=== PATIENT | male | born 1960 | race Caucasian/White ===

== ENCOUNTER 2018-03-15 22:42 | Inpatient (IN) | payer MEDICAID ==
[~2018-03-15] VITALS: Ht 172.7 cm; Wt 71.7 kg
[2018-03-16] MEDS ORDERED: ATOR10TA PO (01:42)
[2018-03-16] MEDS ORDERED: BENA20TA9 PO (01:43)
[2018-03-16] MEDS ORDERED: CARV6.25 PO (01:44)
[2018-03-16] MEDS ORDERED: ALBUT2 CONTNEB (01:49)
[2018-03-16] MEDS ORDERED: FOLI1TAB16 PO (01:49)
[2018-03-16] MEDS ORDERED: FURO20TA4 PO (01:49)
[2018-03-16] MEDS ORDERED: ASPI-605 PO (01:49)
[2018-03-16 02:09] VITALS: BP 163/89
[2018-03-16] MEDS ORDERED: ALBUTEROL FS 2.5 MG/3 ML VIAL.NEB CONTNEB PRN (02:30)
[2018-03-16] MEDS ORDERED: ONDANSETRON HCL/PF 4 MG/2 ML VIAL IVP PRN (03:00)
[2018-03-16] MEDS ORDERED: MAGNESIUM HYDROXIDE 30 ML UDC PO PRN (03:00)
[2018-03-16] MEDS ORDERED: IPRATROPIUM NEB FS 0.5 MG/2.5 ML AMPUL.NEB NEB PRN (03:00)
[2018-03-16] MEDS ORDERED: ZOLPIDEM TARTRATE 5 MG TABLET PO PRN (03:00)
[2018-03-16] MEDS ORDERED: ACETAMINOPHEN 325 MG TABLET PO PRN (03:00)
[2018-03-16] MEDS ORDERED: Thiamine 100 MG in IV D5W 50 ML IV SCH (03:00)
[2018-03-16] MEDS ORDERED: CLONIDINE HCL 0.1 MG TABLET PO PRN (03:00)
--- NOTE | 2018-03-16 03:09 | NUR ---
RN NOTE RECEIVED PATIENT FROM [facility], AMBULATES WITH ASSIST, UNSTEADY GAIT, ALERT/ORIENTED X 3, ALL SKIN PICTURES TAKEN AND PLACED IN THE CHART, DR MOHAN CURTIS IS BY BEDSIDE, NO RESPIRATORY DISTRESS NOTED, ON ROOM AIR, NO PAIN OR DISCOMFORT NOTED, RAC 18 GAUGE IS INTACT, NO S/S OF INFECTION/INFILTRATION NOTED, DX CHEST PAIN/ETOH INTOXICATION, HISTORY OF COPD, CHF, SMOKING, HTN, BED ALARM IS ON AND CHECKED PRIOR, ALL SAFETY MEASURES TAKEN, MED RECON., MRSA SWAB DONE AND SENT TO LAB, WILL CONTINUE TO MONITOR PATIENT
[2018-03-16 04:00] VITALS: BP 151/81
[2018-03-16 06:19] LABS: BASOPHILS % (AUTO) 0.3 % (0.0-2.0); HEMATOCRIT 41 % (39-51); HEMOGLOBIN 14.4 g/dL (13.5-17.5); LYMPHOCYTES # (AUTO) 0.5 /CMM (0.8-4.8); LYMPHOCYTES % (AUTO) 9.3 % (20.0-44.0); MEAN CORPUSCULAR HGB CONC 35 g/dl (31.0-36.0); MEAN CORPUSCULAR VOLUME 102 fL (80-96); MONOCYTES # (AUTO) 0.1 /CMM (0.1-1.30); NEUTROPHILS % (AUTO) 88.4 % (43.0-81.0); PLATELET COUNT (AUTO) 203 /CMM (150-450); RED BLOOD CELL COUNT(AUTO) 4.08 MIL/uL (4.5-6.0); WHITE BLOOD COUNT (AUTO) 5.6 K/uL (4.3-11.0)
[2018-03-16 06:42] LABS: ALBUMIN 3.4 g/dL (3.4-5.0); BILIRUBIN,TOTAL 0.6 mg/dL (0.2-1.0); CREATININE 0.8 mg/dL (0.6-1.3); PHOSPHORUS 3.9 mg/dL (2.5-4.9); POTASSIUM 3.2 mmol/L (3.5-5.1); TOTAL PROTEIN, SERUM 6.8 g/dL (6.4-8.2)
[2018-03-16 06:51] LABS: MAGNESIUM 1.1 mg/dL (1.8-2.4)
--- NOTE | 2018-03-16 07:10 | NUR ---
RN NOTE RECEIVED CALL BACK FROM DR MOHAN CURTIS, NOTIFIED DR PRESTON THAT TROPNIN IS ELEVATED 0,254 AND CRITICAL LAB VALUE OF MG 1.1, DR PRESTON PUT AN ORDERS, ENDORSED TO AM SHIFT TO INITIATE ORDERS
[2018-03-16 07:23] LABS: THYROID STIMULATING HORMONE 0.566 uIU/mL (0.358-3.74)
[2018-03-16] MEDS ORDERED: POTASSIUM CHLORIDE 20 MEQ TAB.PRT.SR PO ONE (07:30)
[2018-03-16 08:00] VITALS: BP 147/86
[2018-03-16] MEDS: Magnesium 1GM/D5W 100ML PREMIX 100 ML IV SCH ×3 (08:53→12:19)
[2018-03-16] MEDS ORDERED: FOLIC ACID 1 MG TABLET PO SCH (09:00)
[2018-03-16] MEDS: THIAMINE HCL 100 MG TABLET PO SCH (09:04)
[2018-03-16] MEDS: PANTOPRAZOLE 40 MG TABLET.DR PO SCH (09:04)
[2018-03-16] MEDS: FUROSEMIDE 20 MG TABLET PO SCH (09:04)
[2018-03-16] MEDS: FOLIC ACID 1 MG TABLET PO SCH (09:04)
[2018-03-16] MEDS: ASPIRIN EC 81 MG TABLET.DR PO SCH (09:04)
[2018-03-16] MEDS: MULTIVITAMINS,THERAGRAN 1 UDTAB TABLET PO SCH (09:04)
[2018-03-16] MEDS: CARVEDILOL 6.25 MG TABLET PO SCH ×2 (09:05→18:50)
[2018-03-16] MEDS: BENAZEPRIL HCL 20 MG TABLET PO SCH (09:05)
--- NOTE | 2018-03-16 09:47 | NUR ---
WOUND CARE CONSULT: PT PRESENTS INDEPENDENT WITH BED MOBILITY AND CONTINENT AT THIS TIME. LEFT UPPER ARM ABRASION NOTED. RECOMMENDATIONS MADE FOR WOUND CARE. DISCUSSED WITH NURSING STAFF. WILL SEE PRN. Addendum: 03/16/18 at 0948 by ROCIO ROMERO [id number] Amended: Links added.
[2018-03-16] MEDS: ENOXAPARIN SODIUM 80 MG/0.8 ML DISP.SYRIN SQ SCH ×2 (10:23→21:11)
[2018-03-16] MEDS: LORAZEPAM INJ 2 MG/ML VIAL IV PRN ×2 (10:24→15:36)
[2018-03-16] MEDS: BACITRACIN/POLYMYXIN B 15 GM TUBE TP SCH (11:34)
[2018-03-16 12:00] VITALS: BP 112/70
[2018-03-16 16:00] VITALS: BP_SYST 141; BP_SYST 144; BP_DIAS 75
--- NOTE | 2018-03-16 19:15 | NUR ---
INSPECTOR PLUMBING NOTE PATIENT RESTING IN BED IN STABLE CONDITION, NO APPARENT DISTRESS OR COMPLAINT OF PAIN, ABLE TO MAKE NEEDS KNOWN. IV ATIVAN ADMINISTERED PRN FOR ALCOHOL WITHDRAWAL SYMPTOMS. IV SITE ON RIGHT AC INTACT SALINE LOCK. BED IN LOW LOCKED POSITION, ALARM ON, CALL LIGHT WITHIN REACH, ENDORSED TO WEB PRODUCTION MANAGER NURSE FOR CONTINUITY OF CARE.
--- NOTE | 2018-03-16 19:30 | NUR ---
NUCLEAR PLANT TECHNICAL ADVISOR NOTE: RECEIVED PT ON BED ASLEEP BUT AROUSES EASILY TO VERBAL AND TACTILE STIMULI. NO ACUTE DISTRESS NOTED. DENIES PAIN AND DISCOMFORT AT THIS TIME. NO SOB NOTED. ON TELE MONITOR SINUS RHYTHM HR 75BPM. IV ON RIGHT AC #18 INTACT AND PATENT, FLUSHING WELL. KEPT CLEAN, DRY AND COMFORTABLE. CALL LIGHT PLACED WITHIN REACH. SIDE RAILS UP X3. BED ALARM ON. BED LOCKED AND IN LOWEST POSITION. WILL CONTINUE TO MONITOR PT.
[2018-03-16 20:00] VITALS: BP 117/74
[2018-03-16] MEDS ORDERED: ATORVASTATIN 10 MG TABLET PO SCH (22:00)
[2018-03-17] VITALS: BP 133/81
[2018-03-17 04:00] VITALS: BP 129/76
--- NOTE | 2018-03-17 06:46 | NUR ---
WELL LOGGING MUD ANALYSIS CAPTAIN NOTE: NO CHANGES NOTED THROUGHOUT THE SHIFT. NO APPARENT DISTRESS NOTED. NO COMPLAINTS OF PAIN OR DISCOMFORT AT THIS TIME. NO SOB NOTED. IV ON RIGHT ANTECUBITAL #18 INTACT AND PATENT, FLUSHING WELL. SINUS RHYTHM HR 66BPM ON TELE MONITOR. KEPT CLEAN, DRY AND COMFORTABLE. CALL LIGHT PLACED WITHIN REACH. SAFETY AND FALL PRECAUTIONS OBSERVED AND MAINTAINED. WILL ENDORSE TO DAY SHIFT FOR CONTINUITY OF CARE.
[2018-03-17 06:55] LABS: BASOPHILS % (AUTO) 0.2 % (0.0-2.0); EOSINOPHILS % (AUTO) 0.1 % (0.0-6.0); HEMATOCRIT 42 % (39-51); HEMOGLOBIN 14.5 g/dL (13.5-17.5); LYMPHOCYTES # (AUTO) 1.7 /CMM (0.8-4.8); LYMPHOCYTES % (AUTO) 15.8 % (20.0-44.0); MEAN CORPUSCULAR HGB CONC 34 g/dl (31.0-36.0); MEAN CORPUSCULAR VOLUME 103 fL (80-96); MONOCYTES # (AUTO) 0.5 /CMM (0.1-1.30); MONOCYTES % (AUTO) 4.7 % (2.0-12.0); NEUTROPHILS # (AUTO) 8.7 /CMM (1.8-8.9); NEUTROPHILS % (AUTO) 79.2 % (43.0-81.0); PLATELET COUNT (AUTO) 198 /CMM (150-450); RED BLOOD CELL COUNT(AUTO) 4.11 MIL/uL (4.5-6.0); WHITE BLOOD COUNT (AUTO) 10.9 K/uL (4.3-11.0)
--- NOTE | 2018-03-17 07:00 | NUR ---
MARKETING PROJECT MANAGER OPENING NOTES RECEIVED REPORT FROM PM NURSE. PT IN BED ASLEEP, AROUSABLE. PT IS A/OX4. CONCERNED WITH BEING DISCHARGED TODAY. ON ROOM AIR. SAT WNL. NOT IN DISTRESS. ON TELE PT IS SR. PT NOT C/O CHEST PAIN. TROP APPEARS TO BE TRENDING DOWN. BED IN LOCKED/LOWEST POSITION. CALL LIGHT IN REACH. WILL CONT TO MONITOR.
[2018-03-17 08:00] VITALS: BP 138/71
[2018-03-17 08:07] LABS: ALBUMIN 3.3 g/dL (3.4-5.0); BILIRUBIN,TOTAL 1.1 mg/dL (0.2-1.0); CALCIUM, SERUM 9.2 mg/dL (8.5-10.1); CREATININE 0.9 mg/dL (0.6-1.3); MAGNESIUM 1.9 mg/dL (1.8-2.4); PHOSPHORUS 3.1 mg/dL (2.5-4.9); POTASSIUM 3.5 mmol/L (3.5-5.1); TOTAL PROTEIN, SERUM 6.6 g/dL (6.4-8.2)
--- NOTE | 2018-03-17 08:30 | NUR ---
LPC NOTES REPORT GIVEN TO NURSE PARKER FOR MILI.
--- NOTE | 2018-03-17 08:39 | NUR ---
[employer] REPRESENTATIVE [employer] INSURANCE NOTES WILL RESUME CARE OF PT.
[2018-03-17] MEDS: PANTOPRAZOLE 40 MG TABLET.DR PO SCH (08:50)
[2018-03-17] MEDS: ASPIRIN EC 81 MG TABLET.DR PO SCH (08:53)
[2018-03-17] MEDS: CARVEDILOL 6.25 MG TABLET PO SCH (08:53)
[2018-03-17] MEDS: MULTIVITAMINS,THERAGRAN 1 UDTAB TABLET PO SCH (08:54)
[2018-03-17] MEDS: BENAZEPRIL HCL 20 MG TABLET PO SCH (08:54)
[2018-03-17] MEDS: FOLIC ACID 1 MG TABLET PO SCH (08:54)
[2018-03-17] MEDS: THIAMINE HCL 100 MG TABLET PO SCH (08:55)
[2018-03-17] MEDS: FUROSEMIDE 20 MG TABLET PO SCH (08:55)
[2018-03-17] MEDS: BACITRACIN/POLYMYXIN B 15 GM TUBE TP SCH (08:56)
[2018-03-17] MEDS: ENOXAPARIN SODIUM 80 MG/0.8 ML DISP.SYRIN SQ SCH (09:00)
[2018-03-17] MEDS: LORAZEPAM INJ 2 MG/ML VIAL IV PRN (09:02)
[2018-03-17 12:00] VITALS: BP_SYST 121; BP_SYST 178; BP_DIAS 65; BP_DIAS 88
[2018-03-17 16:00] VITALS: BP 129/69
--- NOTE | 2018-03-17 17:03 | NUR ---
MS RN D/C NOTES PT LEFT WITH IN WHEELCHAIR. IV'S REMOVED. ID BAND REMOVED. PICS TAKEN LESS THAN 24 HOURS AGO. BELONGINGS WITH PT AND SIGNED FOR. DISCHARGE INSTRUCTIONS REVIEWED WITH PATIENT. ALL NEEDS ATTENDED TO.
== END 2018-03-17 17:00 | disposition home or self-care (01) | DRG 190 ==
LOC: TELE1 03-16 01:03 → MEDSG1 03-17 11:47
PROVIDERS: ADMIT Nurse Practitioner Acute Care; ATTEND Nurse Practitioner Acute Care
DX: I21.A1 Myocardial infarction type 2 (principal); I50.23 Acute on chronic systolic (congestive) heart failure; I42.6 Alcoholic cardiomyopathy; E83.42 Hypomagnesemia; I11.0 Hypertensive heart disease with heart failure; F10.229 Alcohol dependence with intoxication, unspecified; E87.6 Hypokalemia; E78.5 Hyperlipidemia, unspecified; F17.200 Nicotine dependence, unspecified, uncomplicated; Z79.82 Long term (current) use of aspirin; Z79.899 Other long term (current) drug therapy; J44.9 Chronic obstructive pulmonary disease, unspecified; Y90.8 Blood alcohol level of 240 mg/100 ml or more; I25.10 Atherosclerotic heart disease of native coronary artery without angina pectoris; W13.4XXA Fall from, out of or through window, initial encounter; Y92.009 Unspecified place in unspecified non-institutional (private) residence as the place of occurrence of the external cause
CPT/HCPCS: 36415; 71045-TC; 80053-TC; 80061-TC; 83735-TC; 83880; 84100-TC; 84443-TC; 84484-TC; 85025-TC; 87081-TC; 93307-TC; G0378; J1650; J2060; J3411; J3475; J7050; J7060